=== PATIENT | male | born 1945 | race Caucasian/White ===

== ENCOUNTER 2024-09-19 21:11 | Inpatient (IN) | payer MEDICARE, BC, SELFPAY ==
[2024-09-19 21:14] VITALS: BP 188/75; PULSE 71; RESP 19; TEMP 36.9; O2SAT 93
[2024-09-19 21:16] VITALS: PULSE 109; RESP 18; O2SAT 99
--- NOTE | 2024-09-19 21:22 | PD.EDADULT ---
ED General RME/HPI General Chief complaint: Flu Like Symptoms Stated complaint: COUGHING UP BLOOD Time Seen by Provider: 09/19/24 21:21 Source: patient and EMS Arrival date/time: 09/19/24 21:11 Mode of arrival: EMS Limitations: no limitations RME / HPI RME / HPI narrative: Dr. Miller?s Main ED Evaluation: 79-year-old male brought in by ambulance who presents to the ED for complaints of coughing up blood. Patient states it occurred at about 6PM this evening. He brings in a sample with him. He denies actual cough, fever, chills, or any other symptoms or complaints. He does report phlegm production. He reports current tobacco use at 2 packs a day since he was [id number][age][id number]. Patient notes extensive cardiac history include open heart surgery approximately 7 years ago and stent placement last April 2024. Related Data Home Medications ?Medication ?Instructions ?Recorded ?Confirmed amlodipine 10 mg tablet 10 mg PO QDAY 09/13/19 03/08/21 aspirin 81 mg tablet,delayed 81 mg PO QDAY 09/13/19 03/08/21 release atorvastatin 10 mg tablet 10 mg PO QDAY 09/13/19 03/08/21 metoprolol succinate 100 mg 100 mg PO QDAY 09/13/19 03/08/21 tablet,extended release 24 hr Previous Rx's ?Medication ?Instructions ?Recorded azithromycin 250 mg tablet See Rx Instructions PO .COMPLEX #6 12/24/23 tabs Allergies Allergy/AdvReac Type Severity Reaction Status Date / Time acetaminophen [From [place]] Allergy Mild Flushing Verified 08/15/22 00:15 hydrocodone [From [place]] Allergy Mild Flushing Verified 08/15/22 00:15 codeine Allergy Hives Verified 08/15/22 00:15 Review of Systems Review of Systems Systems Reviewed: All systems reviewed, normal except as documented Past Medical History Past Medical History NEUROLOGIC: Negative Neurological Disorders or Seizures CARDIAC: Positive Aneurysm and Hypertension; Negative Cardiac Disorders or Congestive Heart Failure RESPIRATORY: Positive Chronic Obstructive Pulmonary Disease (COPD); Negative Asthma GASTROINTESTINAL: Positive Gastrointestinal Disorders; Negative Hepatitis GENITOURINARY: Negative Genitourinary Disorders or Renal Disease MUSCULOSKELETAL: Negative Musculoskeletal Disorders ENT: Negative Glaucoma ENDOCRINE: Negative Endocrine Disorders, Diabetes Mellitus Type 1 or Diabetes Mellitus Type 2 HEMATOLOGIC: Negative Blood Disorders, Sickle Cell Disease or Clotting Problems OTHER HISTORY: Positive Chicken Pox, Measles, Mumps and Cancer; Negative Falls, Blood Transfusions, Blood Transfusion Reaction, Anesthesia Reactions or MRSA Family History FAMILY HISTORY: Negative Family Cardiac Disorders Surgical History SURGICAL: Positive Eye Surgery and Vasectomy; Negative Endocrine Surgery Social History SMOKING STATUS: Never smoker ED Exam Narrative Physical exam: GENERAL APPEARANCE: alert and oriented x 4, well-developed, well-nourished, no acute distress VITALS: All vitals were reviewed and the pulse ox is 93% on room air, which is normal according to my interpretation. HEENT: Normocephalic, atraumatic; pupils equal, round, reactive to light; EOMI; mucous membranes pink, moist; oropharynx clear NECK: Supple LUNGS: CTABL; no wheezes, no rales, no rhonchi HEART: Regular rate, regular rhythm; normal S1, S2; no murmurs ABDOMEN: non distended; normal BS; soft, no tenderness, no guarding, no rebound; no masses, no organomegaly, no hernia BACK: no CVA tenderness EXTREMITIES: atraumatic; no edema NEUROLOGIC: awake; alert and oriented x4; cranial nerves II-XII grossly intact; no focal sensory or motor deficits PSYCHIATRIC: appropriate mood and affect SKIN: warm, dry, normal color; no rashes General Limitations: Present no limitations Course Course Course Narrative: CXR ordered for determining etiology of cough. 0435: Spoke with Dr. Srinivasan from teleradiology regarding CTA re-read. States there is a dilated segment of the arch, but is not an aneurysm, and that the remainder of the CTA shows chronic changes that are normal. 0444: Patient is still hypertensive at 173/113 with a pulse ox of 88-91% on 2L/nasal cannula. On room air, he is at 87-9% on room air, but is not in any respiratory distress or shortness of breath. He endorses having a recent cough. Lungs are clear. Will consult an admission to the hospitalist. Quality Measures none Orders Category Date Time Status Admit to Inpatient Status Routine Admission 09/20/24 05:13 Active Patient Condition Routine Admission 09/20/24 05:13 Ordered Activity as Tolerated Routine Care 09/20/24 05:14 Ordered Iron Erector NOW Care 09/19/24 21:37 Active Continuous Pulse Oximetry NOW Care 09/19/24 21:36 Completed EKG (ED ONLY) *Do not use* NOW Care 09/19/24 21:37 Completed Insert IV NOW Care 09/19/24 21:37 Completed Notify provider NEEDED Care 09/20/24 05:13 Active Orthostatic Vitals NOW Care 09/19/24 21:36 Active Sequential Compression Device QSHIFT Care 09/20/24 05:[address] angio chest abdomen pelvis Stat Exams 09/19/24 21:40 Taken EKG (ED Only) Stat Exams 09/19/24 21:36 Draft XR chest 1V portable Stat Exams 09/19/24 21:36 Completed Arterial Blood Gas Stat Lab 09/19/24 22:01 Completed B-Type Natriuretic Peptide Stat Lab 09/19/24 21:52 Completed BMP [Basic Metabolic Panel] Stat Lab 09/20/24 04:57 Ordered Basic Metabolic Panel AM DRAW Lab 09/21/24 05:00 Ordered Basic Metabolic Panel AM DRAW Lab 09/22/24 05:00 Ordered Basic Metabolic Panel AM DRAW Lab 09/23/24 05:00 Ordered CBC AM DRAW Lab 09/21/24 05:00 Ordered CBC AM DRAW Lab 09/22/24 05:00 Ordered CBC AM DRAW Lab 09/23/24 05:00 Ordered CBC Stat Lab 09/19/24 21:52 Completed CBC Stat Lab 09/20/24 04:57 Ordered Comprehensive Metabolic Panel Stat Lab 09/19/24 21:52 Completed Magnesium Stat Lab 09/19/24 21:52 Completed Partial Thromboplastin Time Stat Lab 09/19/24 21:52 Completed Procalcitonin Stat Lab 09/20/24 05:18 Ordered Prothrombin Time with INR Stat Lab 09/19/24 21:52 Completed Troponin I Stat Lab 09/19/24 21:52 Completed Azithromycin Inj [Zithromax Inj] 250 mg Med 09/20/24 05:19 Ordered Sodium Chloride 0.9% 250 ml [Ns] 250 ml IV QDAY Labetalol IV [Trandate IV] Med 09/20/24 04:32 Discontinued 20 mg IVP X1 ONE Potassium Chloride [K-Dur] Med 09/20/24 04:31 Discontinued 20 meq PO X1 ONE Sodium Chloride 0.9% 1000 ml [Ns] 1,000 ml Med 09/20/24 05:15 Active IV 75 mls/hr amLODIPine BESYLATE [Norvasc] Med 09/20/24 09:00 Active 10 mg PO QDAY Code Status Routine Oth 09/20/24 05:13 Ordered Oxygen Delivery NOW RT 09/19/24 21:36 Active Vital Signs Vital signs: Vital Signs Temperature 98.4 F 09/19/24 21:14 Pulse Rate 71 09/19/24 21:14 Respiratory Rate 19 09/19/24 21:14 Blood Pressure 188/75 H 09/19/24 21:14 Pulse Oximetry (%) 93 L 09/19/24 21:14 Oxygen Delivery Method Room Air 09/19/24 21:14 [facility] Patient data External records reviewed:: [facility] previous records and EMS form Clinical information provided by:: patient and EMS Social determinants that could affect healthcare access:: substance use (smokes cigarettes - 2 packs per day for the last 60 years) Patient has the following chronic illnesses:: aortic dissection (surgically treated 7 years ago), hyperlipidemia, and hypertension, stent placement at [facility] 04/18/24 per patient How is presenting disease/condition affected by chronic disease/condition?: uneffected by Evaluation data The following diagnostics were reviewed and interpreted by me:: lab results, radiology exam(s) and EKG tracing(s) Lab and/or radiology exams considered but not ordered:: None Interpretation Summary: WBC count is elevated at 12.6, Potassium is slightly low at 3.1, troponin is normal, according to my interpretation. CXR shows a prior sternotomy, widened mediastinum, and bibasilar infiltrates, according to my interpretation. EKG done at 2306, NSR, rate of 81, normal axis, no ectopy, mild subtle ST depressions in V2-V6, lead II, and avF, no STEMI, according to my interpretation. ---- Telerad Preliminary Report Draft Patient: VIJAY NEWTON [facility]. Record#: [id number] Birthdate: 1945 Age/Sex: 79 / M Location: [facility] Attending Dr: Ordering Physician: Date of Service: Procedure(s): Accession Number(s): cc: ~ CT angiogram of the chest, abdomen and pelvis with intravenous contrast (axial sections with sagittal and coronal reformats). September 20, 2024 at 0141 hours Clinical History: Hemoptysis. Reference is made to the prior report dated CT Angio chest May 27, 2022. 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 The origins of the right brachiocephalic, left common carotid and left subclavian arteries are patent. Again noted is tortuosity of the descending thoracic aorta, with fusiform partially thrombosed aneurysm measuring up to 5.4 cm at the level of the diaphragm. There is patent stent in the descending aorta and abdominal aorta to the infrarenal level. There are patent stents of celiac, superior mesenteric and bilateral renal arteries. 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 The left internal iliac artery is patent. There is no filling defect within the pulmonary artery divisions to suggest pulmonary thromboembolism. No evidence of mediastinal mass or lymphadenopathy. There is no pericardial effusion. Coronary artery calcification is noted. Emphysematous changes are seen in the lungs with subpleural reticulations. No evidence of pleural effusion or pneumothorax. Large enhancement defect in inferior pole of the kidney bilaterally. There is 1.6 cm lesion in the left interpolar region of the left kidney. Left renal cysts, the largest measuring up to 4.2 cm. A 1.2 cm in the right kidney. The liver, gallbladder, spleen, pancreas, adrenals are unremarkable. A small hiatal hernia is present. No evidence of bowel obstruction. The appendix is within normal limits (axial image 237/401). There are multiple colonic diverticula without evidence of diverticulitis. There is no significant mesenteric or retroperitoneal adenopathy. The urinary bladder is unremarkable. The prostate is moderately enlarged indenting the urinary bladder base. Prostatic calcifications are seen. There is no free fluid, free air or abscess. A small fat-containing umbilical hernia is present. Degenerative changes are identified in the spine. Median sternotomy wires are identified. Impression: 1. 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 2. Tortuosity of the descending thoracic aorta, with fusiform partially thrombosed aneurysm measuring up to 5.4 cm at the level of the diaphragm. Patent stent in the descending aorta and abdominal aorta to the infrarenal level. 3. 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 4. 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 5. 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 6. Renal lower pole infarctions bilaterally. 7. No evidence of pulmonary thromboembolism. 8. Moderately enlarged prostate. 9. Other findings as described above. Discussion Details: Results verbally communicated to : Dr Miller at 03:19 AM 09/20/2024 Report Electronically Signed By: Nivia Srinivasan 09/20/2024 3:31:15 AM [EST Medications Medications considered but not ordered:: None Medication administrations:: Medication Administration History Amlodipine Besylate (Amlodipine Besylate 5 Mg Tablet) 10 mg PO QDAY [facility] Stop: 10/20/24 08:59 Sodium Chloride (Ns) 1,000 mls @ 75 mls/hr IV .[id number] ARIC Stop: 09/20/24 18:34 Azithromycin 250 mg/ Sodium (Chloride) 250 mls @ 250 mls/hr IV QDAY [facility] Stop: 09/27/24 05:18 Discontinued Medications Labetalol HCl (Labetalol Inj 5 Mg/Ml Vial 20 Ml) 20 mg IVP X1 ONE Stop: 09/20/24 04:33 Last Admin: 09/20/24 04:46 Dose: 20 mg Documented By: FREEDOM Potassium Chloride (Potassium Chloride 20 Meq Tabcr) 20 meq PO X1 ONE Stop: 09/20/24 04:32 Last Admin: 09/20/24 04:45 Dose: 20 meq Documented By: FREEDOM As above, if any Consultations Consultation(s) initiated? (list below): Yes Consultation #1 (Physician, Specialty, Details): Discussed case with [Dr. Harris] from Hospitalist service regarding admission. Discussed patients ED course, exam findings, labs, and radiology results. The Hospitalist will review the chart and call me back. Time: 04:53 Consultation #2 (Physician, Specialty, Details): Dr. Harris accepts the patient for admission. Time: 05:15 Diagnosis Differential Diagnosis ED Complaint MDM: See MDM Most likely diagnosis given after review of the tests above:: See clinical impression Admission Indicated Admission indicated?: indicated Explain why admission is indicated or not indicated:: Admission criteria met. Admission Request Was there a request for admission?: Yes Admission Attestation Admission request attestation: Discussed case with [] from Hospitalist service regarding admission. Discussed patients ED course, exam findings, labs, and radiology results. The Hospitalist [agrees,declines] to accept the patient for admission. Disposition Plan Disposition Plan: Admit Medical Decision Making Differential Diagnosis Differential Diagnosis: See [facility] Lab Data 09/19/24 21:52 09/19/24 21:52 Labs: Lab Results 09/19/24 09/19/24 Range/Units 21:52 22:01 WBC 12.6 H (3.8-10.6) Thou/mm3 RBC 4.91 (4.50-5.90) Miln/mm3 Hgb 14.4 (13.5-16.0) g/dL Hct 41.6 (41.0-53.0) % MCV 85 (80-100) fL MCH 29.3 (25.0-35.0) pg MCHC 34.6 (31.0-37.0) g/dl RDW Std Deviation 42.7 (35.1-43.9) fL Plt Count 209 (140-440) Thou/mm3 Neut % (Auto) 45 (37-80) % Lymph % (Auto) 38 (10-50) % [place] % (Auto) 10 (0-12) % Eos % (Auto) 6 (0-10) % Baso % (Auto) 1 (0-2.5) % Neut # (Auto) 5.7 (1.8-7.7) Thou/mm3 Lymph # (Auto) 4.8 (1.0-4.8) Thou/mm3 [place] # (Auto) 1.2 H (0.0-0.8) Thou/mm3 Eos # (Auto) 0.8 H (0.0-0.5) Thou/mm3 Baso # (Auto) 0.1 (0.0-0.2) Thou/mm3 Immature Gran # (Auto) 0.05 H (0.00-0.00) Thou/mm3 Absolute Nucleated RBC 0.00 (0.00-0.00) Thou/mm3 Immature Gran % 0 (0-0) % Nucleated RBC % 0 (0) /100 WBC PT 11.9 (9.0-12.2) Seconds INR 1.1 (0.9-1.3) APTT 28.6 (22.0-36.0) Seconds Puncture Site Right Radial ABG pH 7.45 (7.35-7.45) ABG pCO2 46 (32.0-48.0) mmHg ABG pO2 62 L (83-108) mmHg ABG HCO3 32 H (20-26) mEq/L ABG O2 Saturation 94 (91-98) % ABG Base Excess 7 H (-3-3) FiO2 21 % Sodium 137 (136-145) mMol/L Potassium 3.1 L (3.4-5.1) mMol/L Chloride 101 (98-107) mMol/L Carbon Dioxide 30.4 (20.0-31.0) mMol/L Anion Gap 6 L (7-16) BUN 18 (9-23) mg/dL Creatinine 1.2 (0.6-1.3) mg/dL Estim Creat Clear Calc 61.7 (>60) mL/min eGFR > 60 (60 - ) See Note BUN/Creatinine Ratio 15 (12-20) Ratio Glucose 115 H (74-106) mg/dL Calculated Osmolality 276 (275-295) Calcium 9.9 (8.3-10.6) mg/dL Corrected Calcium 9.9 (8.5-10.1) mg/dL Magnesium 1.9 (1.6-2.6) mg/dL Total Bilirubin 0.5 (0.3-1.2) mg/dL AST 19 (0-34) U/L ALT 11 (10-49) U/L Alkaline Phosphatase 88 (46-116) U/L Troponin I < 0.020 (0.0-0.045) ng/mL B-Natriuretic Peptide 104 H (0-100) pg/mL Total Protein 6.6 (5.7-8.2) gm/dL Albumin 4.3 (3.4-4.8) gm/dL Globulin 2.3 (2.3-3.5) gm/dL Albumin/Globulin Ratio 1.9 (1.2-2.2) Discharge Plan Prescriptions/Referrals Prescriptions/Med Rec: No Action amlodipine 10 mg tablet 10 mg PO QDAY aspirin 81 mg tablet,delayed release (DR/EC) 81 mg PO QDAY atorvastatin 10 mg tablet 10 mg PO QDAY metoprolol succinate 100 mg tablet extended release 24 hr 100 mg PO QDAY azithromycin 250 mg tablet See Rx Instructions .ROUTE .COMPLEX Qty: 6 0RF Rx Instructions: For 250 mg dose pack: take 500 mg today (day 1), then 250 mg for 4 days (days 2-5) Referrals: No Primary/Family,Physician [Primary Care Provider] - In 1 week Patient/Caregiver Discharge Instructions Print Language: [place] Citizen
--- NOTE | 2024-09-19 21:36 | XR_ITS ---
Examination: AP chest single view Technique one AP portable upright chest single view Exam date and time: September 19, 2024 2145 hrs. Comparison December 24, 2023 Indications: Hemoptysis today. Findings: Bibasilar opacity consistent with pneumonia CABG Normal heart size Partial visualization aortic stent Prominent osteopenia No amrit pulmonary edema Mild to moderate vascular congestion Impression: Bibasilar pneumonia
--- NOTE | 2024-09-19 21:36 | EKG_ITS ---
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
[2024-09-19 21:37] VITALS: BP 166/105; PULSE 81; RESP 29; O2SAT 93; BMI 34.4
--- NOTE | 2024-09-19 21:40 | XR_ITS ---
Examination: CTA chest, with intravenous contrast. CTA abdomen, with intravenous contrast. CTA pelvis, with intravenous contrast. 2-D sagittal and coronal reconstructions. 3-D reconstructions. Date and time of exam: September 20, 2024 0141 hours INDICATIONS: Status post aortic valve repair and aortic stent placement, coughing up blood today, hemoptysis CTDI vol (mgy) 10.8 DLP (MGycm) 894 Technique: Multiple CTA images, 2.0 mm slice thickness, obtained chest, abdomen, pelvis, with the high-resolution 64 slice scanner. 100 cc Isovue-370 is administered intravenously. Sagittal and coronal 2-D reconstructions are obtained. 3-D reconstructions, angiographic images are obtained. 3-D postprocessing, including vascular maximum intensity projections. Low dose protocols were performed. One or more of the following dose reduction techniques were used; automated exposure control, adjustment of the mA and/or KV according to patient size, use of iterative reconstruction technique. Findings: Aneurysmal dilatation of the aortic arch measuring up to 4.4 cm Aneurysmal dilatation of the thoracic aortic arch 4 cm, AP dimension 3.3 cm in the mid descending thoracic aorta and 5.9 cm in the descending thoracic aorta This stent is patent Patent stents celiac superior mesenteric and bilateral renal arteries 2.2 cm aneurysm celiac trunk with chronic thrombus axial image 169 Possible infarction in the inferior right kidney with extensive low density Subtle lesion posterior left kidney 16 mm Aneurysm at the aortic bifurcation, transverse dimension 5.3 cm Aneurysmal dilatation right common iliac artery 3 cm left common iliac artery 3.1 cm Aneurysm right internal iliac artery 2.7 cm which is largely thrombosed Bladder intact, moderate prostatomegaly Prominent osteopenia IMPRESSION: Negative for pulmonary artery emboli Aneurysmal dilatation thoracic aortic arch, descending thoracic aorta Patent thoracic aortic stent, patent celiac superior mesenteric and bilateral renal artery stents 2.2 cm aneurysm celiac trunk Suspicious for partial infarction anterior right kidney 16 mm solid lesion left kidney, recommend renal sonography follow-up Aneurysm aortic bifurcation 5.3 cm Aneurysms right and left common iliac arteries and right internal iliac artery
[2024-09-19 22:10] LABS: Allen Test Performed/OK; Base Excess 7 (-3-3); HCO3 32 mEq/L (20-26); Inspired Oxygen, FIO2 21 %; O2 Saturation 94 % (91-98); PCO2 46 mmHg (32.0-48.0); PO2 62 mmHg (83-108); Puncture Site Right Radial; pH, Arterial 7.45 (7.35-7.45)
[2024-09-19 22:14] LABS: Basophils # (Auto) 0.1 Thou/mm3 (0.0-0.2); Basophils % (Auto) 1 % (0-2.5); Eosinophils # (Auto) 0.8 Thou/mm3 (0.0-0.5); Eosinophils % (Auto) 6 % (0-10); Hematocrit 41.6 % (41.0-53.0); Hemoglobin 14.4 g/dL (13.5-16.0); Immature Granulocytes % (Auto) 0 % (0-0); Immature Granulocytes Auto 0.05 Thou/mm3 (0.00-0.00); Lymphocytes # (Auto) 4.8 Thou/mm3 (1.0-4.8); Lymphocytes % (Auto) 38 % (10-50); Mean Corpuscular HGB Conc 34.6 g/dl (31.0-37.0); Mean Corpuscular Hemoglobin 29.3 pg (25.0-35.0); Mean Corpuscular Volume 85 fL (80-100); Monocytes # (Auto) 1.2 Thou/mm3 (0.0-0.8); Monocytes % (Auto) 10 % (0-12); Neutrophils # (Auto) 5.7 Thou/mm3 (1.8-7.7); Neutrophils % (Auto) 45 % (37-80); Nucleated Red Blood Cell % 0 /100 WBC (0); Platelet Count 209 Thou/mm3 (140-440); RDW Standard Deviation 42.7 fL (35.1-43.9); Red Blood Count 4.91 Miln/mm3 (4.50-5.90); White Blood Count 12.6 Thou/mm3 (3.8-10.6)
[2024-09-19 22:27] LABS: INR 1.1 (0.9-1.3); Partial Thromboplastin Time 28.6 Seconds (22.0-36.0); Prothrombin Time 11.9 Seconds (9.0-12.2)
[2024-09-19 22:31] LABS: Alanine Aminotransferase 11 U/L (10-49); Albumin, Serum 4.3 gm/dL (3.4-4.8); Albumin/Globulin Ratio 1.9 (1.2-2.2); Alkaline Phosphatase 88 U/L (46-116); Anion Gap 6 (7-16); Aspartate Amino Transferase 19 U/L (0-34); BUN/Creatinine Ratio 15 Ratio (12-20); Bilirubin,Total 0.5 mg/dL (0.3-1.2); Blood Urea Nitrogen 18 mg/dL (9-23); Calcium 9.9 mg/dL (8.3-10.6); Calcium (Corrected) 9.9 mg/dL (8.5-10.1); Carbon Dioxide 30.4 mMol/L (20.0-31.0); Chloride 101 mMol/L (98-107); Creatinine (Component) 1.2 mg/dL (0.6-1.3); Estimated Creatinine Clearance 61.7 mL/min (>60); Globulin 2.3 gm/dL (2.3-3.5); Glucose 115 mg/dL (74-106); Magnesium 1.9 mg/dL (1.6-2.6); Osmolality,Calculated 276 (275-295); Potassium 3.1 mMol/L (3.4-5.1); Sodium 137 mMol/L (136-145); Total Protein 6.6 gm/dL (5.7-8.2); Troponin I < 0.020 ng/mL (0.0-0.045); eGFR > 60 See Note
[2024-09-19 22:33] LABS: B-Type Natriuretic Peptide 104 pg/mL (0-100)
[2024-09-19 23:22] VITALS: BP 178/118; BP 179/116; BP 186/105; PULSE 81; PULSE 85; PULSE 89; RESP 18; O2SAT 95
[2024-09-20] VITALS (35 sets, daily range): BP systolic 99–198; BP diastolic 69–113; PULSE 60–90; RESP 15–24; TEMP 36.2–37.2; O2SAT 87–96
--- NOTE | 2024-09-20 03:31 | PRELIM_ITS ---
CT angiogram of the chest, abdomen and pelvis with intravenous contrast (axial sections with sagittal and coronal reformats). September 20, 2024 at 0141 hoursClinical History: Hemoptysis.Reference is made to the prior report dated CT Angio chest May 27, 2022.Findings:There is fusiform aneurysm of a ortic arch measuring 4 cm (coronal image 63/174). The origins of the right brachiocephalic, left comm on carotid and left subclavian arteries are patent. Again noted is tortuosity of the descending thora cic aorta, with fusiform partially thrombosed aneurysm measuring up to 5.4 cm at the level of the marlon phragm. There is patent stent in the descending aorta and abdominal aorta to the infrarenal level. Th ere are patent stents of celiac, superior mesenteric and bilateral renal arteries. 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 Aneurysmal d ilatation of both common iliac arteries measuring at the right side 2.9 cm, at the left side 3.1 cm, with it partial thrombosis. 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 The left internal iliac artery is patent.There is no filling defect within the pulmonary artery divisions to suggest pulmonary thromboembolism. No evidence of mediastinal mass or lymphadenop athy. There is no pericardial effusion. Coronary artery calcification is noted. Emphysematous changes are seen in the lungs with subpleural reticulations. No evidence of pleural effusion or pneumothorax . Large enhancement defect in inferior pole of the kidney bilaterally. There is 1.6 cm lesion in the left interpolar region of the left kidney. Left renal cysts, the largest measuring up to 4.2 cm. A 1. 2 cm in the right kidney.The liver, gallbladder, spleen, pancreas, adrenals are unremarkable.A small hiatal hernia is present. No evidence of bowel obstruction. The appendix is within normal limits (axi al image 237/401). There are multiple colonic diverticula without evidence of diverticulitis. There i s no significant mesenteric or retroperitoneal adenopathy.The urinary bladder is unremarkable. The pr ostate is moderately enlarged indenting the urinary bladder base. Prostatic calcifications are seen. There is no free fluid, free air or abscess. A small fat-containing umbilical hernia is present. Dege nerative changes are identified in the spine. Median sternotomy wires are identified. Impression:1. F usiform aneurysm of aortic arch measuring 4 cm.2. Tortuosity of the descending thoracic aorta, with f usiform partially thrombosed aneurysm measuring up to 5.4 cm at the level of the diaphragm. Patent st ent in the descending aorta and abdominal aorta to the infrarenal level.3. 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 Renal lower pole infarctions bilaterally.7. No evidence of pulmonary thromboembolism.8. Moderately enlarged prostate.9. Other findings as described above.Discussion Deta ils: Results verbally communicated to : Dr Miller at 03:19 AM 09/20/2024 Report Electronically Vani d By: Nivia Srinivasan 09/20/2024 3:31:15 AM [EST]
[2024-09-20] MEDS: POTASSIUM CHLORIDE 20 mEq TABCR PO ×3 (04:45→08:24)
[2024-09-20] MEDS: LABETALOL INJ 5 MG/ML VIAL 20 ML 20 MG IVP (04:46)
--- NOTE | 2024-09-20 05:24 | EVENTNT_ITS ---
Documentation for date of: 09/20/24 Event Note Event Note: Chief Complaint: Hemoptysis. History of Present Illness: The patient is a 79-year-old male with a significant cardiac history, including open-heart surgery seven years ago and extensive stent placement in April 2024 at [place], presenting with hemoptysis. He reports coughing up a substantial amount of blood starting at approximately 6:00 PM last evening without prior warning. He denies any preceding cough, fever, chills, chest pain, or shortness of breath but notes occasional phlegm production. This episode espinoza the second occurrence of hemoptysis, the first being in February of this year, which resulted in an overnight hospitalization and a diagnosis of pneumonia, later amended to an aortic aneurysm. He denies any recent trauma or new symptoms. His surgical history includes placement of 11 stents at [place] last April due to aortic aneurysm. Post-surgery, he experienced significant back pain and muscle loss but no persistent symptoms. He has chronic back pain. He reports lightheadedness occasionally but no dizziness or syncope. He denies abdominal pain, dysuria, or other gastrointestinal or genitourinary symptoms. Social history reveals extensive tobacco use of two packs per day for the past 61 years. He consumes blackberry harjinder occasionally and denies illicit drug use. His current medications include a baby aspirin and antihypertensives. He reports COPD but denies it being problematic. He is currently asymptomatic aside from hemoptysis. In ER, his vital signs showed a temperature of 98.4?F, heart rate 71 bpm, respiratory rate 19, blood pressure 188/75 mmHg, and oxygen saturation of 93% on room air. Labs were significant for leukocytosis, hemoglobin 14.4, platelets 209, potassium 3.1, and glucose 115. 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 * Tortuous descending thoracic aorta with a fusiform, partially thrombosed aneurysm (5.4 cm). * Aneurysms of the abdominal aorta bifurcation (3.7 cm), celiac trunk, and iliac arteries. * Renal infarctions bilaterally. * Patent stents in the thoracic and abdominal aorta. There was no evidence of pulmonary thromboembolism. Other findings included an enlarged prostate. The patient was admitted for observation and monitoring of hemoptysis given his complex vascular history. Past Medical History: * Thoracic and abdominal aortic aneurysms with stent placement (April 2024). * Chronic obstructive pulmonary disease (COPD). * Hypertension. Past Surgical History: * Open-heart surgery (2017). * Stent placement x11 (April 2024). Social History: * Tobacco: 2 packs/day for 61 years. * Alcohol: Occasional blackberry harjinder. * Lives with his . Family History: * Brother of a massive heart attack Labs and images reviewed. Assessment and Plan: #Hemoptysis: Differential diagnosis includes bronchitis or an endoleak from the stent graft. A pulmonology consultation will be arranged. Hold blood thinner now. Trend H/H. #Thoracic and abdominal aortic aneurysms: Stable on CT. #COPD: Stable. Continue to encourage smoking cessation. #Hypertension: Continue the current regimen and monitor blood pressure regularly. Admit for observation and close monitoring of hemoptysis and vascular status.
--- NOTE | 2024-09-20 05:45 | PD.RESHP ---
Documentation for date of: 09/20/24 HPI History of Present Illness Chief complaint: Hemoptysis History of present illness: 79-year-old male with past medical history of chronic smoking, COPD, aortic dissection status postrepair, hypertension, hyperlipidemia, recent aneurysmal repair with a stent placement in April 2024 at [place], BPH, phimosis status post surgery presented to the hospital with chief complaints of hemoptysis since 4 days. Patient endorsed that he had recent flulike illness in the early August, and was treated with a Z-Jordan by the primary care provider. Patient endorsed that he is having cough with sputum for many years but he noted recent worsening of cough with sputum since the viral illness. Since 4 days, he noted specks of hemoptysis while he was coughing but on the day before admission, patient had multiple episodes of hemoptysis, in total patient had almost 200 mL of blood loss following which he came to the ED. Showed the pictures of hemoptysis and also at the bedside that revealed amrit blood clots in the mucous. Denies shortness of breath, fever, recent bedridden. Patient is still continuing to smoke, 2 packs a day. Endorsed weight loss since the time of aortic aneurysm repair in April 2024. ED Course: -Initial vitals were blood pressure 188/75 mmHg, pulse rate 71 bpm, respiratory rate 19/min, temperature 98.4 ?F, SpO2 93% with room air -Labs significant for mild leukocytosis 12.6, potassium 3.1, BNP 104, coagulation studies are within normal limits. Chest x-ray showed bilateral patchy infiltrate in the lower lobes. 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 Tortuous descending thoracic aorta with a fusiform, partially thrombosed aneurysm (5.4 cm). Aneurysms of the abdominal aorta bifurcation (3.7 cm), celiac trunk, and iliac arteries. Renal infarctions bilaterally. Patent stents in the thoracic and abdominal aorta with no evidence of pulmonary thromboembolism. -In the ED, patient was given a dose of labetalol and potassium -Patient was admitted for evaluation of cause of hemoptysis Past medical history: Aortic dissection s/p repair, aortic aneurysm s/p repair and stent placement, COPD, hypertension, hyperlipidemia, BPH Past surgical history: Status post aortic aneurysm repair, phimosis s/p repair Social history: Chronic smoker, 2 packs/day since the age of 18, occasional alcoholic, denies other illicit drug abuse Review of Systems Review of Systems Systems Reviewed: All systems reviewed, normal except as documented Exam Vital Signs Temp Pulse Resp BP Pulse Ox O2 Del Method O2 Flow Rate 98.0 F 72 20 173/113 H 93 L Nasal Cannula 2 09/20/24 02:42 09/20/24 04:46 09/20/24 04:42 09/20/24 04:46 09/20/24 04:42 09/20/24 04:42 09/20/24 04:42 Narrative Exam General: Awake. Elderly male HEENT: Normocephalic, atraumatic, mucous membranes moist. Heart: Regular rate and rhythm, no murmurs. Lungs: Clear to auscultation with no wheezing or crackles. Abdomen: Soft, nondistended, nontender, positive bowel sounds. ?No guarding or rebound tenderness. Neurologic: Alert and oriented x3, no gross neurological deficit, and patient able to move all 4 extremities. Extremities: No edema. Skin: No rash or ecchymoses. Results: Labs 09/20/24 05:55 09/20/24 05:55 Labs: Short CBC 09/19/24 Range/Units 21:52 WBC 12.6 H (3.8-10.6) Thou/mm3 Hgb 14.4 (13.5-16.0) g/dL Hct 41.6 (41.0-53.0) % Plt Count 209 (140-440) Thou/mm3 BMP 09/19/24 21:52 Sodium 137 Potassium 3.1 L Chloride 101 Carbon Dioxide 30.4 BUN 18 Creatinine 1.2 Glucose 115 H Calcium 9.9 Cardiac Enzymes 09/19/24 Range/Units 21:52 Troponin I < 0.020 (0.0-0.045) ng/mL Liver Function 09/19/24 Range/Units 21:52 Total Bilirubin 0.5 (0.3-1.2) mg/dL AST 19 (0-34) U/L ALT 11 (10-49) U/L Alkaline Phosphatase 88 (46-116) U/L Albumin 4.3 (3.4-4.8) gm/dL ABG Interpretation ABG results: 09/19/24 22:01 ABG pH 7.45 ABG pCO2 46 ABG pO2 62 L ABG HCO3 32 H ABG O2 Saturation 94 ABG Base Excess 7 H Quality Measures Quality Measures none Advance care planning discussed with:: patient Medications Home Medications and Allergies Home Medications ?Medication ?Instructions ?Recorded ?Confirmed ?Type amlodipine 10 mg tablet 10 mg PO QDAY 09/13/19 09/20/24 History aspirin 81 mg tablet,delayed 81 mg PO QDAY 09/13/19 09/20/24 History release atorvastatin 10 mg tablet 40 mg PO QDAY 09/13/19 09/20/24 History metoprolol succinate 100 mg 100 mg PO QDAY 09/13/19 09/20/24 History tablet,extended release 24 hr sennosides 8.6 mg tablet (Senokot) 8.6 mg PO QDAY 09/20/24 09/20/24 History Allergies Allergy/AdvReac Type Severity Reaction Status Date / Time acetaminophen [From [facility]] Allergy Mild Flushing Verified 08/15/22 00:15 hydrocodone [From [facility]] Allergy Mild Flushing Verified 08/15/22 00:15 codeine Allergy Hives Verified 08/15/22 00:15 Visit Medications Amlodipine Besylate (Amlodipine Besylate 5 Mg Tablet) 10 mg PO QDAY ARIC Stop: 10/20/24 08:59 Sodium Chloride (Ns) 1,000 mls @ 75 mls/hr IV .[id number] ARIC Stop: 09/20/24 18:34 Azithromycin 250 mg/ Sodium (Chloride) 250 mls @ 250 mls/hr IV QDAY ARIC Stop: 09/28/24 08:59 Azithromycin 250 mg/ Sodium (Chloride) 250 mls @ 250 mls/hr IV X1 ONE Stop: 09/20/24 06:44 Discontinued Medications Labetalol HCl (Labetalol Inj 5 Mg/Ml Vial 20 Ml) 20 mg IVP X1 ONE Stop: 09/20/24 04:33 Last Admin: 09/20/24 04:46 Dose: 20 mg Potassium Chloride (Potassium Chloride 20 Meq Tabcr) 20 meq PO X1 ONE Stop: 09/20/24 04:32 Last Admin: 09/20/24 04:45 Dose: 20 meq Assessment & Plan Plan 79-year-old male with past medical history of chronic smoking, COPD, aortic dissection status postrepair, hypertension, hyperlipidemia, recent aneurysmal repair with a stent placement in April 2024 at [place], BPH, phimosis status post surgery presented to the hospital with chief complaints of hemoptysis since 4 days and admitted for hemoptysis evaluation # Moderate hemoptysis # 2/2 to aspirin vs bronchitis vs endobronchial malignancy vs less likely fistula from the aneurysm and stenting # Chronic smoking -Patient presented to the hospital with a chief complaints of hemoptysis since 4 days approximately 200 to 250 mL -Patient had a preceding history of upper respiratory tract infection in the early August for which patient was treated with Z-Jordan -Patient had history of chronic cough with sputum since many years. Denies fever, shortness of breath -Endorsed that he had weight loss since April 2024 after aneurysm repair. -Patient is using aspirin at home -Vitals are stable at the time of admission except for elevated blood pressure 188/75 mmHg -Physical examination remains unremarkable. -Labs showed mildly elevated WBC 10.8, coagulation studies are within normal limits. -Chest x-ray showed mild patchy infiltrates in bilateral lung vann. CTA chest/abdomen/pelvis done. Plan -Withheld aspirin -Started on IV fluids NS at 75 mL/h -Consult community center director Dr. Reaves -Monitor for further episodes of hemoptysis -Bronchoscopy if needed for further evaluation -Educate on smoking cessation # History of hypertension -Blood pressure at the time of admission is 188/75 mmHg -Patient does not exactly know the name of the blood pressure medications but he said that he is using 3 of them -Medication reconciliation is ordered -Patient received a dose of labetalol 20 Mg IV in the ED -Started on amlodipine 10 Mg p.o. daily and hydralazine 10 Mg IV 6 hourly as needed -Monitor blood pressures and titrate medications accordingly. # Hypokalemia -Potassium at the time of admission is 3.2 -Received 20 mEq of oral potassium and 1 more dose of 20 mEq of oral potassium is ordered -Monitor serum electrolytes and correct accordingly # Hyperlipidemia -Patient is using atorvastatin -Ordered lipid profile # History of BPH -Patient had complaints of increased frequency of micturition at night -Not on any medication as of now -Follow-up with Dr. Belle on outpatient basis # History of aortic aneurysm s/p repair -Done in 2023 at [place] -Records are obtained from the [facility] blood pressure control Hospital Maintenance: Dispo: Telemetry DVT ppx: Held in view of hemoptysis GI ppx: Not needed Diet: N.p.o. for now IV lines: Peripheral Code status: Full code Patient plan of care was discussed with the attending physician, Dr. Steven Easton, PGY1 Attending Provider Attestation/Addendum Pt was evaluated and plan formulated together with the housestaff team. I have reviewed the residents note above and agree with most of its content. Please refer to the residents note for additional details.
[2024-09-20 06:03] LABS: Basophils # (Auto) 0.1 Thou/mm3 (0.0-0.2); Basophils % (Auto) 1 % (0-2.5); Eosinophils # (Auto) 0.7 Thou/mm3 (0.0-0.5); Eosinophils % (Auto) 6 % (0-10); Hematocrit 41.7 % (41.0-53.0); Hemoglobin 14.3 g/dL (13.5-16.0); Immature Granulocytes % (Auto) 1 % (0-0); Immature Granulocytes Auto 0.05 Thou/mm3 (0.00-0.00); Lymphocytes # (Auto) 3.7 Thou/mm3 (1.0-4.8); Lymphocytes % (Auto) 35 % (10-50); Mean Corpuscular HGB Conc 34.3 g/dl (31.0-37.0); Mean Corpuscular Hemoglobin 29.1 pg (25.0-35.0); Mean Corpuscular Volume 85 fL (80-100); Monocytes % (Auto) 10 % (0-12); Neutrophils # (Auto) 5.2 Thou/mm3 (1.8-7.7); Neutrophils % (Auto) 48 % (37-80); Nucleated Red Blood Cell % 0 /100 WBC (0); Platelet Count 183 Thou/mm3 (140-440); RDW Standard Deviation 43.8 fL (35.1-43.9); Red Blood Count 4.91 Miln/mm3 (4.50-5.90); White Blood Count 10.8 Thou/mm3 (3.8-10.6)
[2024-09-20] MEDS: AZITHROMYCIN INJ 250 MG in SODIUM CHLORIDE 0.9% 250 ML 250 ML IV (06:13)
[2024-09-20] MEDS: SODIUM CHLORIDE 0.9% 1000 ML 1,000 ML 75 ML IV (06:13)
[2024-09-20 06:33] LABS: Anion Gap 5 (7-16); BUN/Creatinine Ratio 15 Ratio (12-20); Blood Urea Nitrogen 16 mg/dL (9-23); Calcium 9.6 mg/dL (8.3-10.6); Carbon Dioxide 29.3 mMol/L (20.0-31.0); Chloride 103 mMol/L (98-107); Creatinine (Component) 1.1 mg/dL (0.6-1.3); Estimated Creatinine Clearance 67.3 mL/min (>60); Glucose 112 mg/dL (74-106); Osmolality,Calculated 276 (275-295); Potassium 3.2 mMol/L (3.4-5.1); Sodium 137 mMol/L (136-145); eGFR > 60 See Note
[2024-09-20] MEDS: amLODIPine BESYLATE 5 MG TABLET 10 MG PO (08:24)
[2024-09-20] MEDS: Magnesium Sulfate 2 GM Ivpb 2 GM/50 ML BAG IV (08:25)
[2024-09-20] MEDS: hydrALAZINE INJ 20 MG/ML VIAL 10 MG IV (10:04)
[2024-09-20] MEDS: LABETALOL INJ 5 MG/ML VIAL 20 ML 10 MG IVP (10:48)
[2024-09-20] MEDS: METOPROLOL SUCCINATE XL 25 MG TABCR 100 MG PO (10:50)
[2024-09-20] MEDS: cefTRIAXone/D5w 1gm IV premix 50 ML IV (10:52)
--- NOTE | 2024-09-20 11:42 | PC.NURSE ---
Pt refuse blood drawl for TB.
--- NOTE | 2024-09-20 12:36 | PC.CC ---
Patient is a 79 year-old male who presents to the hospital for Hemoptysis. Anuja ALEJANDRE made [id number] contact with patient. ASW introduced self, role, and reason for visit. Patient appeared alert and oriented to self, location, and situation. Patient was pleasant and engaged in initial assessment. Patient confirmed information on demographics and lives with his , Ariana Pelayo . Patient's medical decision maker is his should he be unable to make his own medical decisions. At home patient ambulates independently and completes his own ADLs. Patient does not use any DME at home. Patient receives primary care with Dr. Augustin. Upon discharge patient plans to return home. services tech to follow-up with any discharge needs.
--- NOTE | 2024-09-20 13:30 | XR_ITS ---
Examination: Pulmonary perfusion and ventilatory scan Exam date and time: September 21, 2024 0936 hrs. Indications: Onset hemoptysis shortness of breath beginning 4 days ago, diagnoses COPD, nicotine dependence, history aortic dissection status post repair, hypertension, hyperlipidemia, bibasilar pneumonia and imaging this week Technique And Findings: Perfusion study 4.3 mCi technetium 99m macroaggregated albumin Ventilation 46.5 mCi technetium 90 9M DTPA Anterior, posterior, right lateral, left lateral, MORA, BENINESE chest images obtained Severe ventilation abnormality seen with COPD and pneumonia Perfusion study is quite homogeneous excepting left upper lobe which shows ventilatory defect No pulmonary perfusion ventilation mismatch Impression: No pulmonary perfusion ventilatory mismatch Low probability pulmonary artery emboli
[2024-09-20 13:51] LABS: Cocci Serology, IgM Negative (Negative)
--- NOTE | 2024-09-20 13:54 | ESPR_ITS ---
<Statement entered by Maxime Garcia MD - 09/20/24 16:30> I discussed with and supervised my co-resident involved in the care of this patient. I agree with the assessment and plan as documented above. Maxime Garcia,PGY-3 Disclaimer: Despite multiple revisions, due to the dictation software being used, the document below may not be free of grammatical errors including phonetic/typographic errors. However, this does not deter from our commitment to providing health care in the patient's best interest in mind. Documentation for date of: 09/20/24 Subjective Subjective Interval history: Patient was seen at bedside this morning. No overnight events. Patient still having hemoptysis. Patient CT scan did show aneurysmal dilatation thoracic aortic arch, patent thoracic aortic stent/celiac superior mesenteric/bilateral renal artery stents, 2.2 cm aneurysm celiac trunk, 16 mm solid lesion left kidney, aneurysm aortic bifurcation 5.3 cm, aneurysms right and left common iliac arteries and right internal iliac artery. Patient and daughter were updated on these findings. Ordained Minister recommended to get VQ scan and stated that patient most likely did not have any pneumonia and that infiltrates were most likely fibrotic tissue from COPD. No other complaints at this time. Started Rocephin additionally to Azithromycin for PNA. Exam Vital Signs Temp Pulse Resp BP Pulse Ox O2 Del Method O2 Flow Rate 98.6 F 74 22 H 163/104 H 91 L Room Air 2 09/20/24 09:00 09/20/24 11:30 09/20/24 11:30 09/20/24 11:30 09/20/24 11:30 09/20/24 09:00 09/20/24 04:42 Narrative Exam General: A/O x3, no acute distress, well-nourished, well-developed Eyes: PERRL, EOMI. Anicteric, vision grossly intact. Ears: No ear pain, no ear discharge, Hearing grossly intact. Nose: No nasal discharge. Mouth/Throat: Dry mucous membranes, no redness, no lesions, dry blood around lips. Neck: Neck supple, non-tender, no cervical lymphadenopathy. Lungs: Clear LUISA to auscultation and percussion, No accessory muscle use. Cardio: Normal S1/S2, regular rhythm, no murmurs, no JVD. Abdomen: Soft, non-tender, no palpable masses, peristalsis present, no guarding or rebound. Extremities: Symmetrical, no significant deformities, no peripheral edema , non-tender, peripheral pulses presents. Skin: No rashes, no lesions, warm to touch. Neuro: No focal neurological deficits. motor and sensory intact. Objective Labs 09/20/24 05:55 09/20/24 05:55 Labs: Laboratory Results - last 24 hr 09/19/24 09/19/24 09/20/24 21:52 22:01 05:55 WBC 12.6 H 10.8 H RBC 4.91 4.91 Hgb 14.4 14.3 Hct 41.6 41.7 MCV 85 85 MCH 29.3 29.1 MCHC 34.6 34.3 RDW Std Deviation 42.7 43.8 Plt Count 209 183 Neut % (Auto) 45 48 Lymph % (Auto) 38 35 Holt % (Auto) 10 10 Eos % (Auto) 6 6 Baso % (Auto) 1 1 Neut # (Auto) 5.7 5.2 Lymph # (Auto) 4.8 3.7 Holt # (Auto) 1.2 H 1.0 H Eos # (Auto) 0.8 H 0.7 H Baso # (Auto) 0.1 0.1 Immature Gran # (Auto) 0.05 H 0.05 H Absolute Nucleated RBC 0.00 0.00 Immature Gran % 0 1 H Nucleated RBC % 0 0 PT 11.9 INR 1.1 APTT 28.6 Puncture Site Right Radial ABG pH 7.45 ABG pCO2 46 ABG pO2 62 L ABG HCO3 32 H ABG O2 Saturation 94 ABG Base Excess 7 H FiO2 21 Sodium 137 137 Potassium 3.1 L 3.2 L Chloride 101 103 Carbon Dioxide 30.4 29.3 Anion Gap 6 L 5 L BUN 18 16 Creatinine 1.2 1.1 Estim Creat Clear Calc 61.7 67.3 eGFR > 60 > 60 BUN/Creatinine Ratio 15 15 Glucose 115 H 112 H Calculated Osmolality 276 276 Calcium 9.9 9.6 Corrected Calcium 9.9 Magnesium 1.9 Total Bilirubin 0.5 AST 19 ALT 11 Alkaline Phosphatase 88 Troponin I < 0.020 B-Natriuretic Peptide 104 H Total Protein 6.6 Albumin 4.3 Globulin 2.3 Albumin/Globulin Ratio 1.9 Procalcitonin 0.10 Coccidioides IgM Ab 09/20/24 09:58 WBC RBC Hgb Hct MCV MCH MCHC RDW Std Deviation Plt Count Neut % (Auto) Lymph % (Auto) Holt % (Auto) Eos % (Auto) Baso % (Auto) Neut # (Auto) Lymph # (Auto) Holt # (Auto) Eos # (Auto) Baso # (Auto) Immature Gran # (Auto) Absolute Nucleated RBC Immature Gran % Nucleated RBC % PT INR APTT Puncture Site ABG pH ABG pCO2 ABG pO2 ABG HCO3 ABG O2 Saturation ABG Base Excess FiO2 Sodium Potassium Chloride Carbon Dioxide Anion Gap BUN Creatinine Estim Creat Clear Calc eGFR BUN/Creatinine Ratio Glucose Calculated Osmolality Calcium Corrected Calcium Magnesium Total Bilirubin AST ALT Alkaline Phosphatase Troponin I B-Natriuretic Peptide Total Protein Albumin Globulin Albumin/Globulin Ratio Procalcitonin Coccidioides IgM Ab Negative ABG Interpretation ABG results: 09/19/24 22:01 ABG pH 7.45 ABG pCO2 46 ABG pO2 62 L ABG HCO3 32 H ABG O2 Saturation 94 ABG Base Excess 7 H Quality Measures Quality Measures none Advance care planning discussed with:: patient and child Assessment & Plan Assessment Current Active Medications: Generic Name Dose Route Start Last Admin Trade Name Freq PRN Reason Stop Dose Admin Amlodipine Besylate 10 mg 09/20/24 09:00 09/20/24 08:24 Amlodipine Besylate 5 Mg Tablet PO 10/20/24 08:59 10 mg QDAY ARIC Administration Sodium Chloride 1,000 mls @ 75 mls/hr 09/20/24 05:15 09/20/24 06:13 Ns IV 09/20/24 18:34 75 mls/hr .[id number] ARIC Administration Azithromycin 250 mg/ Sodium 250 mls @ 250 mls/hr 09/21/24 09:00 Chloride IV 09/28/24 08:59 QDAY ARIC Ceftriaxone Sodium/Dextrose 50 mls @ 100 mls/hr 09/20/24 10:26 09/20/24 11:39 Rocephin/D5w 1gm Iv Premix IV 09/27/24 10:25 Infused QDAY ARIC Infusion Metoprolol Succinate 100 mg 09/20/24 10:45 09/20/24 10:50 Metoprolol Succinate Xl 25 Mg Tabcr PO 10/20/24 10:44 100 mg QDAY ARIC Administration Plan 79-year-old male with past medical history of COPD, chronic smoker, aortic dissection status postrepair, hypertension, hyperlipidemia, recent aneurysms repair with stent placement at [place], and BPH was admitted to the hospital on 09/20/2024 due to hemoptysis likely secondary to COPD versus his malignancy versus fistula from thoracic aortic aneurysm. #Hemoptysis #COPD #Chronic smoker #Thoracic aortic arch aneurysm s/p stent ?patient has been having hemoptysis since February of last year, but it had resolved. ? Now patient has hemoptysis again for the last 4 days and decided to come to the ER. ? DDx hemoptysis most likely in the setting of malignancy versus fistula formation from thoracic aortic arch aneurysm versus COPD ?CT scan did show aneurysmal dilatation thoracic aortic arch and patent thoracic aortic stent Plan: ? VQ scan ordered ?Pulmonology consulted, pressure recommendations -will need thoracic surgeon F/U outpatient ? Will continue to monitor #Hypertensive urgency ? Patient's blood pressure was 188/111 this morning ?Labetalol 10 mg x 1 given today ? Current blood pressure 163/94 Plan: ? Start metoprolol XL 100 mg daily ? Continue amlodipine 10 mg daily ?Labetalol 10 mg every 4 hours as needed for SBP above 170 and DBP above 100 ?Will decrease blood pressure by no more than 25% today ? Will continue to monitor #Community-acquired pneumonia #Leukocytosis ?Patient recently had an upper respiratory tract infection for which she got a CPAP outpatient. ?Chest x-ray did not show bibasilar pneumonia ?WBC 10.8 today ?Patient had no fevers on admission Plan: ? Continue azithromycin and Rocephin [09/20/2024?] ?Cocci ordered ?Will continue to monitor #Hypokalemia ? Potassium 3.1 on admission 3.2 today Plan: ? Gave total of 40 mg this morning. ? Will continue to replete as necessary ? Will continue to monitor #16 mm left kidney mass, incidental finding ? Chest/abdomen/pelvis CTA showed a 16mm solid lesion of the left kidney Plan: ? Follow-up outpatient Disposition: Patient admitted to telemetry pending VQ scan, will need thoracic surgeon F/U outpatient . Diet: Cardiac GI prophylaxis: not indicated DVT prophylaxis: SCD Code: Full Case disclosed with Attending Dr. Fleming and My senior Dr. Garcia PGY3. Freddy Song PGY1 Attending Provider Attestation/Addendum I have examined the patient, reviewed labs and imaging findings, discussed the case with the resident(s), and reviewed entered orders. I agree with the plan of care as outlined in this note, with these additional summaries/recommendations: Patient and daughter seen at bedside. Patient admitted for active hemoptysis without a clear etiology. CXR showed bibasilar pneumonia and previous CABG. CTA chest was negative for pulmonary artery emboli but did reveal aneurysmal dilation aortic arch plus descending, patent thoracic aortic stent, patent celiac superior mesenteric and bilateral renal artery stents, 2.2 cm aneurysm celiac trunk, aneurysm aortic bifurcation 5.3 cm, and aneurysms right and left common iliac arteries and right internal iliac artery. Differential for hemoptysis is broad at this time. Possible etiologies include airway diseases with bronchitis/bronchiectasis, infection, fistula, AV malformation, iatrogenic injury, malignancy, smoking, idiopathic, or fungal. Pulmonology consulted and we will order VQ scan. Patient is stable and no bronchoscopy needed at this time. Continue IV Rocephin and azithromycin for possible community-acquired pneumonia. Cocci ordered. Patient has extensive thoracic and abdominal aortic aneurysms with 11 stents placed at [place] last April. Hold home anticoagulation for now. Continue home antihypertensives. Potassium and magnesium replaced. We will follow-up pulmonology recs and VQ scan. Repeat hematology and chemistry panel in AM. Dr. Fleming Patient was reevaluated by pulmonology who recommends strict blood pressure control, strict bedrest, sleep on left side, hold aspirin, 1 units of platelets, nebulizer with TXA, and initiate transfer for embolization. Transfer nurse notified.
[2024-09-20] MEDS: SENNA TABLET 1 TAB PO (18:15)
[2024-09-20] MEDS: LACTULOSE SYRUP 20 GM/30 ML UDC PO (18:15)
[2024-09-20] MEDS: TAMSULOSIN HCL 0.4 MG CAPSULE PO (18:15)
--- NOTE | 2024-09-20 18:36 | PC.CC ---
Addendum entered by Vinh Moss RN 09/20/24 18:49: Spoke to Fidel at [facility], patient was seen by their cardiovascular team. He will review clinicals provided and contact us with any requests for additional information. He has requested images to be sent for review by his vascular surgeon. Packet was and disc were created and handed off to ICU charge nurse. Original Note: Received call from Dr. Maxime Garcia requesting to initiate transfer to [facility] for cardiothorasic evaluation of hemoptysis, patient had aneurysmal repair with stents at [facility] in April,.
--- NOTE | 2024-09-20 18:39 | ESDS_ITS ---
<Statement entered by Maxime Garcia MD - 09/20/24 18:42> I discussed with and supervised my co-resident involved in the care of this patient. I agree with the assessment and plan as documented above. Maxime Garcia,PGY-3 Disclaimer: Despite multiple revisions, due to the dictation software being used, the document below may not be free of grammatical errors including phonetic/typographic errors. However, this does not deter from our commitment to providing health care in the patient's best interest in mind. Planned Discharge Date 09/20/24 DS: Providers Provider Date of admission: 09/20/24 05:13 Primary care physician: Physician No Primary/Family Admitting Provider: Aydin Harris MD Attending Provider on Admission: Aydin Harris MD Consults: 09/20/24 05:39 Consult to Pulmonology Routine Comment: hemoptysis Consulting Provider: Jann Reaves I Attending Provider on DC: Seven Fleming MD Discharging Provider: Seven Fleming MD DS: Diagnosis Problem List Completed Was Problem List Reviewed/Reconciled?: Yes Hospital Course Hospital Course Hospital course: 79-year-old male with past medical history of COPD, chronic smoker, aortic dissection status post repair, hypertension, hyperlipidemia, recent aneurysms repair with stent placement at [place], and BPH was admitted to the hospital on 09/20/2024 due to hemoptysis likely secondary to 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 In the ED patient came in with complaints of hemoptysis for 4 days prior to admission. Initially patient was hypertensive and afebrile. Initial labs were relevant for mild leukocytosis (12.6 and down trended to 10.8), and hypokalemia (3.1). Initial imaging included chest x-ray which showed bibasilar pneumonia and EKG which showed sinus rhythm. Chest/abdomen/pelvis CTA show aneurysmal dilatation thoracic aortic arch, patent thoracic aortic stent/celiac superior mesenteric/bilateral renal artery stents, 2.2 cm aneurysm celiac trunk, 16 mm solid lesion left kidney, aneurysm aortic bifurcation 5.3 cm, aneurysms right and left common iliac arteries and right internal iliac artery. Patient's electrolytes were repleted and his aspirin was held, he had apparently not been on aspirin for the last 2 days prior to admission. Patient's hemoglobin was stable at 14.3. Cutter Finisher was consulted given patient's hemoptysis in the setting of thoracic aortic arch aneurysm. Cutter Finisher recommended to transfer the patient to a higher level of care institution given that he will need either thoracic or vascular surgeon for evaluation of aortic aneurysm stent as possible cause of hemoptysis. As per pulmonology recommendations patient was also started on nebulized TXA 500 mg 3 times daily, given 1 unit of platelets, strict bedrest, lactulose, senna, and labetalol 10 mg IV every 4 for systolic blood pressure above 140. At the time of discharge patient was stable enough to be discharged to another institution with higher level care. Discharge plan: ?Transfer to another institution with higher level of care Problem list: #Hemoptysis #COPD #Chronic smoker #Thoracic aortic arch aneurysm s/p stent #Hypertensive urgency #Community-acquired pneumonia #Leukocytosis #Hypokalemia #16 mm left kidney mass, incidental finding Case disclosed with Attending Dr. Fleming and My senior Dr. Garcia PGY3. Freddy Song PGY1 Time Spent with Patient Time attestation: Total time spent providing and/or coordinating discharge services:>35 min Exam Vital Signs Temp Pulse Resp BP Pulse Ox O2 Del Method O2 Flow Rate 97.1 F 74 21 H 150/83 H 96 Room Air 2 09/20/24 16:00 09/20/24 16:00 09/20/24 16:00 09/20/24 16:00 09/20/24 16:09/20/24 16:09/20/24 04:42 Narrative Exam General: A/O x3, no acute distress, well-nourished, well-developed Eyes: PERRL, EOMI. Anicteric, vision grossly intact. Ears: No ear pain, no ear discharge, Hearing grossly intact. Nose: No nasal discharge. Mouth/Throat: Dry mucous membranes, no redness, no lesions, dry blood around lips. Neck: Neck supple, non-tender, no cervical lymphadenopathy. Lungs: Clear LUISA to auscultation and percussion, No accessory muscle use. Cardio: Normal S1/S2, regular rhythm, no murmurs, no JVD. Abdomen: Soft, non-tender, no palpable masses, peristalsis present, no guarding or rebound. Extremities: Symmetrical, no significant deformities, no peripheral edema , non-tender, peripheral pulses presents. Skin: No rashes, no lesions, warm to touch. Neuro: No focal neurological deficits. motor and sensory intact. Discharge Plan Prescriptions/Referrals Prescriptions/Med Rec: No Action amlodipine 10 mg tablet 10 mg PO QDAY aspirin 81 mg tablet,delayed release (DR/EC) 81 mg PO QDAY atorvastatin 10 mg tablet 40 mg PO QDAY metoprolol succinate 100 mg tablet extended release 24 hr 100 mg PO QDAY sennosides [Senokot] 8.6 mg Tablet 8.6 mg PO QDAY Referrals: No Primary/Family,Physician [Primary Care Provider] - Patient/Caregiver Discharge Instructions Print Language: Khmer Quality Discharge Quality Measures VTE prophylaxis MD Attestestation MD Attestation I have examined the patient, reviewed labs and imaging findings, discussed the case with the resident(s), and reviewed entered orders. I agree with the plan of care as outlined in this note. Dr. Fleming
--- NOTE | 2024-09-20 20:34 | ESCONSULT_ITS ---
HPI Pulmonology Consult Data of Consult Requesting Physician: Aydin Harris MD Primary Care Provider: Physician No Primary/Family Consult Narrative History of present illness: Patient is a 79-year-old male with past medical history significant for COPD secondary to tobacco use, continues to smoke at this point, his course has been also completed by presence of hypertension, hyperlipidemia and most notably significant thoracic aortic aneurysm requiring repair after dissection development at [place]. Notably has had 11 stents placed in the past. Patient notes that he has had increasing amounts of hemoptysis over the previous 4 days. Overnight patient had increasing hemoptysis that became difficult to control with gross bright red blood and large volumes and filled up a shoebox full of tissues. Patient was having increasing shortness of breath but called EMS and walked down from his home to the street to meet them there. Patient notes that by the time he reached the [facility] hemoptysis had stopped. Upon increasing activity again this afternoon in the emergency department he had 2- hour episode of continued coughing of gross red blood. Patient has not had any recurrence since 3:30 this afternoon. Association with increased activity. He has not had any fever, chills, or night sweats. He denied any focal chest pain at this point. Patient notes that he did have recent flulike illness in August for which his primary care provider gave him a Z-Jordan. Patient without any recent steroid use with underlying COPD which does not typically bother him. Patient continues to smoke remains at 2 packs a day. He able to briefly quit smoking after surgical intervention for his aneurysm repair. He continues to run a plumbing business. Patient seen in the emergency department where prompt CT was completed that did not show any significant intraparenchymal process though there is some mild groundglass and significant changes consistent with scarring and emphysematous changes. Patient reports that he had similar episode of hemoptysis in the past prior to diagnosis of his vascular disease requiring treatment but none since his surgical intervention. cc:: cc: Aydin Harris MD Review of Systems Review of Systems Narrative Review of Systems: Patient report no recent fever, chills, or night sweats. Noted that he has lost weight since his aneurysm in April. He denied any chest pain, dizziness, lightheadedness. No reports of syncope. Patient denied any hematemesis. No nasal bleed report. Past Medical History Past Medical History Comments PMH COMMENT: Past medical history/surgical history/social history were reviewed with the patient with significant findings included in HPI above. Notably his younger brother did just 6 weeks ago after large myocardial infarction. Meds Home Medications and Allergies Home Medications ?Medication ?Instructions ?Recorded ?Confirmed ?Type amlodipine 10 mg tablet 10 mg PO QDAY 09/13/19 09/20/24 History aspirin 81 mg tablet,delayed 81 mg PO QDAY 09/13/19 09/20/24 History release atorvastatin 10 mg tablet 40 mg PO QDAY 09/13/19 09/20/24 History metoprolol succinate 100 mg 100 mg PO QDAY 09/13/19 09/20/24 History tablet,extended release 24 hr sennosides 8.6 mg tablet (Senokot) 8.6 mg PO QDAY 09/20/24 09/20/24 History Allergies Allergy/AdvReac Type Severity Reaction Status Date / Time acetaminophen [From [place]] Allergy Mild Flushing Verified 08/15/22 00:15 hydrocodone [From [place]] Allergy Mild Flushing Verified 08/15/22 00:15 codeine Allergy Hives Verified 08/15/22 00:15 Exam Vital Signs Temp Pulse Resp BP Pulse Ox O2 Del Method O2 Flow Rate 97.1 F 74 21 H 150/83 H 96 Room Air 2 09/20/24 16:00 09/20/24 16:00 09/20/24 16:00 09/20/24 16:00 09/20/24 16:00 09/20/24 16:00 09/20/24 04:42 Narrative Exam GEN: NAD, AAOX3 HEENT: no blood in nose, no postnasal beeding noted, dark blood mixed in sputum; coughing of clots with clear phlegm; no nasal telangiactasia NECK: supple, no JVD/ HJR CHEST: symmetric excusion, nontraumatic; no telengiectasia CVS: S1/S2+ RRR no R/M/G PULM: Clear to ausculattaion, diminished mor melissa left than right but no active wheezing or rhonchi ABD: soft/ NT/ND, BS+ EXT: no clubbing or cyanosis NEURO: Nonfocal on gross exam PSYCH: appropriate mood/ affect; particpated in history and good historian Physical Exam Completion Physical Exam Complete?: Yes Results - [facility] 09/20/24 05:55 09/20/24 05:55 Labs: Short CBC 09/19/24 09/20/24 Range/Units 21:52 05:55 WBC 12.6 H 10.8 H (3.8-10.6) Thou/mm3 Hgb 14.4 14.3 (13.5-16.0) g/dL Hct 41.6 41.7 (41.0-53.0) % Plt Count 209 183 (140-440) Thou/mm3 BMP 09/19/24 09/20/24 21:52 05:55 Sodium 137 137 Potassium 3.1 L 3.2 L Chloride 101 103 Carbon Dioxide 30.4 29.3 BUN 18 16 Creatinine 1.2 1.1 Glucose 115 H 112 H Calcium 9.9 9.6 Cardiac Enzymes 09/19/24 Range/Units 21:52 Troponin I < 0.020 (0.0-0.045) ng/mL Liver Function 09/19/24 Range/Units 21:52 Total Bilirubin 0.5 (0.3-1.2) mg/dL AST 19 (0-34) U/L ALT 11 (10-49) U/L Alkaline Phosphatase 88 (46-116) U/L Albumin 4.3 (3.4-4.8) gm/dL ABG Interpretation ABG results: 09/19/24 22:01 ABG pH 7.45 ABG pCO2 46 ABG pO2 62 L ABG HCO3 32 H ABG O2 Saturation 94 ABG Base Excess 7 H Assessment & Plan Additional Plan Additional Plan: Massive hemoptysis Patient's imaging does not show large focal consolidation or pneumonia lesion that would be consistent with hemoptysis from a parenchymal process. Does not have significant mass lesion that would explain an active source of bleeding. Review of CT does not show any endobronchial lesion that is obvious. There are large bullae paraseptal along the descending aorta and the thorax though they are not fluid-filled. There is no evidence of any cavity I would suggest active infection or presence of aspergilloma/mycetoma that could lead to bleeding. Patient without history of vasculitis or diffuse alveolar hemorrhage with no imaging findings consistent with this. No evidence of AVM suggestion of telangiectasia on clinical exam. Given his significant vascular history, chief concern may be presence of systemic to pulmonary circulation fistula, suspected in the left lower lobe, or aorto parenchymal process though a bleeding lesion of this size lead to exsanguination. A vascular leak however could be intermittent and may be associated with increased intrathoracic pressure or increased flow rate. Patient should be maintained on bedrest, most likely suspect lesions within the left lung given the tortuous aorta and prior stenting there. Avoid increased intrathoracic pressure with prevention of straining as he has chronic constipation, maintain on Senokot or MiraLAX. Additionally if urinary retention is a problem due to prostatomegaly, Flomax or alternative should be utilized. Notably, we do not have interventional radiology with vascular capability here for bronchial artery embolization, but need for side I do not have a significant lesion to explain for. Alternatively no vascular surgery is available in case this is related to his extensive history of fusiform aortic aneurysms. I will request a VQ scan to be done while he is here to exclude presence of pulmonary AVM though this seems less likely as he is not hypoxic suggesting of [id number] shunt. Patient will be maintained off of his aspirin, no plans for transfusion of platelets at this time unless active bleeding recurs. Patient will benefit from TXA as this has been associated with reduction in duration of hemoptysis. Should the patient develop massive hemoptysis again, patient should be laid on his left side given his imaging findings and brought to the ICU for close monitoring. Albuterol should be used generously as blood is very bronchospastic. Patient does not need steroids and empiric antibiotics can be used but I do not see a significant parenchymal process otherwise. I have updated the patient and his daughter at bedside on plan of care and they are agreeable pending transfer back to his surgical team at [place] where he will have adequate resources for further investigation and appropriate intervention as needed. I remain available overnight in case of emergent airway management and any further details, from bronchoscopy would be helpful in that scenario to find actively bleeding lesion to help direct further therapy from surgical team. Provider Notation Provider Notation: Although this document has been carefully reviewed, there may still be some phonetic and other typographical errors. These errors are purely grammatical due to imperfections in the software program and should not be construed in any way to compromise the substance of the patient's medical care during this visit. Thank you for the opportunity and privilege in assisting you with this patient's care and management.
--- NOTE | 2024-09-20 20:49 | PC.NURSE ---
Images send to [place] and transfer nurse Ayo notified.
[2024-09-20] MEDS: LABETALOL INJ 5 MG/ML VIAL 20 ML IVP (21:17)
--- NOTE | 2024-09-20 21:29 | PC.NURSE ---
patient has been non compliant with activity restriction. he insists on walking to bathroom and does not lay on left side after multiple instructions to do so.
[2024-09-20] MEDS: TRANEXAMIC ACID INJ 1,000 MG/10 ML VIAL 500 MG INH (22:21)
[2024-09-21] VITALS (36 sets, daily range): BP systolic 133–177; BP diastolic 75–102; PULSE 57–77; RESP 14–28; TEMP 36.5–36.7; O2SAT 87–96; BMI 34.1
[2024-09-21] MEDS: LABETALOL INJ 5 MG/ML VIAL 20 ML IVP (00:48)
[2024-09-21 05:45] LABS: Basophils # (Auto) 0.1 Thou/mm3 (0.0-0.2); Basophils % (Auto) 1 % (0-2.5); Eosinophils # (Auto) 0.7 Thou/mm3 (0.0-0.5); Eosinophils % (Auto) 8 % (0-10); Hematocrit 37.9 % (41.0-53.0); Hemoglobin 12.3 g/dL (13.5-16.0); Immature Granulocytes % (Auto) 1 % (0-0); Immature Granulocytes Auto 0.05 Thou/mm3 (0.00-0.00); Lymphocytes # (Auto) 3.2 Thou/mm3 (1.0-4.8); Lymphocytes % (Auto) 33 % (10-50); Mean Corpuscular HGB Conc 32.5 g/dl (31.0-37.0); Mean Corpuscular Hemoglobin 28.7 pg (25.0-35.0); Mean Corpuscular Volume 89 fL (80-100); Monocytes # (Auto) 0.9 Thou/mm3 (0.0-0.8); Monocytes % (Auto) 9 % (0-12); Neutrophils # (Auto) 4.8 Thou/mm3 (1.8-7.7); Neutrophils % (Auto) 50 % (37-80); Nucleated Red Blood Cell % 0 /100 WBC (0); Platelet Count 178 Thou/mm3 (140-440); RDW Standard Deviation 46.1 fL (35.1-43.9); Red Blood Count 4.28 Miln/mm3 (4.50-5.90); White Blood Count 9.8 Thou/mm3 (3.8-10.6)
[2024-09-21] MEDS: TRANEXAMIC ACID INJ 1,000 MG/10 ML VIAL 500 MG INH (05:57)
[2024-09-21 06:05] LABS: Anion Gap 5 (7-16); BUN/Creatinine Ratio 11 Ratio (12-20); Blood Urea Nitrogen 13 mg/dL (9-23); Calcium 9.1 mg/dL (8.3-10.6); Carbon Dioxide 31.2 mMol/L (20.0-31.0); Chloride 104 mMol/L (98-107); Creatinine (Component) 1.2 mg/dL (0.6-1.3); Estimated Creatinine Clearance 61.7 mL/min (>60); Glucose 108 mg/dL (74-106); Osmolality,Calculated 280 (275-295); Potassium 3.2 mMol/L (3.4-5.1); Sodium 140 mMol/L (136-145); eGFR > 60 See Note
[2024-09-21 06:44] LABS: Cardiac Risk Estimate 3.9 RATIO (4.0-6.7); Cholesterol 117 mg/dL (132-200); Glucose Estimated Average 117 mg/dL (80-131); HDL Cholesterol 30 mg/dL (40-60); Hemoglobin A1C 5.7 % Hgb (4.8-6.0); LDL Cholesterol,Calculated 67 mg/dL (0-130); Triglycerides 98 mg/dL (30-150)
--- NOTE | 2024-09-21 08:46 | PC.NURSE ---
Addendum entered by Zita Orozco RN 09/21/24 12:31: SPOKE TO LINDA AND NOTIFIED THAT PATIENT HAS LEFT AMA FROM OUR FACILITY AND TRANSFER IS TO BE CANCELLED. Original Note: SPOKE TO LINDA FROM [facility], STATED THEY ARE WAITING TO CONNECT TO AN ADDITIONAL DOCTOR ON THEIR END TO REVIEW. NO FURTHER ITEMS NEEDED AT THIS TIME.
[2024-09-21] MEDS: POTASSIUM CHLORIDE 20 mEq TABCR 40 MEQ PO (09:55)
[2024-09-21] MEDS: amLODIPine BESYLATE 5 MG TABLET 10 MG PO (09:56)
[2024-09-21] MEDS: AZITHROMYCIN INJ 250 MG in SODIUM CHLORIDE 0.9% 250 ML 250 ML IV (09:59)
[2024-09-21] MEDS: LACTULOSE SYRUP 20 GM/30 ML UDC PO (09:59)
[2024-09-21] MEDS: TAMSULOSIN HCL 0.4 MG CAPSULE PO (09:59)
[2024-09-21] MEDS: cefTRIAXone/D5w 1gm IV premix 50 ML IV (09:59)
[2024-09-21] MEDS: METOPROLOL SUCCINATE XL 25 MG TABCR 100 MG PO (09:59)
--- NOTE | 2024-09-21 11:38 | PC.NURSE ---
Patient not being compliant about bed rest orders. Risks explained to patient but hes still persistent on getting out of bed
--- NOTE | 2024-09-21 11:39 | PC.NURSE ---
patient back from [facility]. Patient's family at bedside. Per patient and family they would like to leave against medical advice. MD Fleming called.
[2024-09-21 14:48] LABS: Cocci Serology, IgG Negative (Negative)
--- NOTE | 2024-09-21 15:28 | EVENTNT_ITS ---
Documentation for date of: 09/21/24 Event Note Event Note: This morning, during bedside rounds around 11:30 AM patient and his family reported that they wanted to leave AMA. They reported that they would be going to [facility] as soon as they leave from here. However, we reported that we have been working for transfer to [facility] but we cannot guarantee the timeframe when he is going to get transferred. The patient and her family members where rigid about their decisions. The patient was alert and oriented x 4, and understood that he was here for hemoptysis, and if he leaves AMA his life would be at risk. He was recommended to stay in the hospital, but he continued to say that he would go to [facility] instead of staying here. He was again reminded about his life-threatening severe illness, and if he left AMA he could possibly bleed to . He reported he understands that but he would like to leave as soon as possible. The patient signed AMA form, and left. The case was discussed with my attending physician MD Warren Arnold MD, PGY2 ---- I have examined the patient, reviewed labs and imaging findings, discussed the case with the resident(s), and reviewed entered orders. I agree with the plan of care as outlined in this note, with these additional summaries/recommendations: Patient seen at bedside. Patient remained stable overnight. Patient endorsed having another episode of hemoptysis this morning but was milder than previous events. I received a call from patient's nurse that patient would like to leave AMA. The patient has decided to leave AGAINST MEDICAL ADVICE because he wants to go to [place] where his vascular doctors are. He has normal mental status and adequate capacity to make medical decisions. The patient refuses to stay hospitalized and request discharge. The risks have been explained to the patient including progression of hemoptysis, worsening breathing, worsening illness, chronic pain, permanent disability and even . The benefits of staying in the hospital have also been explained including the availability and proximity of nurses, physicians, monitoring, diagnostic testing, treatment, and specialist evaluation. The patient was able to understand and state the risks and benefits of hospitalization. Patient and family had the opportunity to ask questions about the medical condition. The patient was treated to the extent that he would allow and knows that he may return for care at any time. Attempted to discuss follow-up although patient states he is going to [place] and will follow-up with his heart doctor as well. Patient encouraged to stay in the hospital although he has signed AMA papers and left. Dr. Fleming
--- NOTE | 2024-09-22 18:43 | ESCONSULT_ITS ---
RE: VIJAY NEWTON : 1945 DATE OF CONSULTATION: 09/21/2024 CONSULTING PHYSICIANS: Hospitalist, Dr. Reaves and Dr. Cisneros REASON FOR CONSULTATION: Evaluation of the patient with descending thoracic aneurysm, recent stent HISTORY OF PRESENT ILLNESS: The patient is a 79-year-old male, very well known to me, longstanding history of hypertension, chronic heavy smoking who had a syncopal episode in 2016 _ type A dissection of the aorta, ascending aorta and descending thoracic aorta, underwent repair of the ascending aorta, hemiarch repair in 2016 at [facility] subsequently, was doing well until recently. In 04/2024, the patient has had multiple problems including descending thoracic aortic aneurysm involving the major vessels. The patient underwent thoracic endovascular repair. At the same time, the patient had multiple stents placed in both renal arteries, celiac arteries, mesenteric arteries at the same time and stent was placed in the descending thoracic aorta, endovascular endothelial stent graft. The patient apparently is doing well until recently. The patient was admitted to the hospital with severe episode of hemoptysis. The patient has had significant hemoptysis, multiple episodes, nearly 200 mL of blood loss according to the patient, but since yesterday afternoon, he came, he is not having any hemoptysis. The patient had evaluation by pulmonary and also complete workup including CT scan was performed. The CT scan of the chest showed no evidence of endobronchial lesions. No evidence of active bleeders. The CT of the thoracic aorta showed evidence of descending thoracic aorta dilated. The stent was patent and there was no active bleeding from the aorta. Stents in the mesenteric, celiac and renal arteries are patent. The patient's family is concerned that he has hemoptysis. There may be some connection with recent stents placed and wanted to take him to [place], but I do not see a need for the patient to be transferred at this time, but the patient's family insisted they want to take him to [place] by personal transportation. The patient clinically when I examined him, he appears to be doing well. I spoke to him. He does not complain of any chest pain or shortness of breath. No further hemoptysis since last night, though when he walks apparently he gets problems. Blood pressure is also controlled well. Generally controlled well at 150/80, not severely elevated. MEDICATIONS: Home medications include metoprolol 100 mg once a day, atorvastatin 10 mg daily, amlodipine 10 mg daily, aspirin 81 daily, generally compliant with medication. ALLERGIES: HE IS ALLERGIC TO CODEINE AND NORCO. PAST MEDICAL HISTORY: Type A dissection of the aorta involving the ascending aorta and hemiarch repair in 2015. In 04/2024, he underwent multiple stents placed in the mesenteric, celiac and renal arteries, also ELG stent graft in descending thoracic aorta for dilated descending aorta. This was done at [facility]. His initial surgery was also at [place]. SOCIAL HISTORY: The patient continues to smoke. He does not smoke or drink alcoholic beverages. FAMILY HISTORY: Noncontributory REVIEW OF SYSTEMS: CARDIOVASCULAR: No angina. No shortness of breath. No chest pain. PULMONARY: History of hemoptysis, subsided. GENITOURINARY: No history of frequency or dysuria. History of urological problems, phimosis and prostatic hypertrophy. FIELD TECH: No neurologic symptoms such as syncope or paresthesia. PHYSICAL EXAMINATION: GENERAL: _ pleasant male, alert, awake and in no acute distress. VITAL SIGNS: Blood pressure is 150/90, pulse rate is 77, respirations 16, temperature is normal. NECK: Supple. No JVD. CHEST: Symmetrical. LUNGS: Clear. No rales or rhonchi. HEART: S1 and S2 regular. No gallops. ABDOMEN: Thin and soft. EXTREMITIES: Mild edema. /RECTAL: Not performed. FIELD TECH: Normal. DIAGNOSTIC DATA: Electrocardiogram showed sinus rhythm, nonspecific changes. Rest of the diagnostic data unremarkable. The CT scan showed evidence of dilated descending aorta. Endoluminal stents were patent. All the stents were patent as well. LABORATORY DATA: Lab data shows hemoglobin did drop from 14 to 12.3, but some of it is dilutional. White count is normal. Chemistry panel is normal. IMPRESSION/ASSESSMENT: 1. Recurrent episode of hemoptysis probably from bronchitis and endobronchial vascular lesions, but no evidence of any abnormal finding on the CT scan such as thoracic mass. 2. History of thoracic dissection of the aorta in 2015, underwent extensive surgery of hemiarch repair and ascending aorta replacement, but subsequently had stents placed in descending thoracic aorta as well as multiple visceral stents with celiac, mesenteric and renal stents placed at [place]. 3. Chronic obstructive pulmonary disease. 4. Chronic smoking. 5. Hypertension. RECOMMENDATIONS: The patient is reassured that there is almost zero chance that aortic leak causing hemoptysis unlikely to happen. Most likely cause would be local pathology, could be bronchial erosion or some other mechanism, but it subsided. Hence, I do not see any major problems, but the patient's family wants to take him to [place], which is okay with me since the patient had extensive testing and also workup down there with stents placed. DT: 14:47:31 TT: 18:37:00 Ref: [id number] - TID: [id number] MTDD
== END 2024-09-21 12:20 | disposition left against medical advice (07) | DRG 194 ==
LOC: SERX 23:22 → SERHOLD 09-20 05:28 → S2NX 09-20 14:39 → S2SX 09-21 10:46 → S2NX 09-23 06:24
PROVIDERS: Admitting Provider Internal Medicine; Emergency Provider Emergency Medicine; Visit Provider Internal Medicine
DX: J18.9 Pneumonia, unspecified organism (principal); R04.2 Hemoptysis; N28.0 Ischemia and infarction of kidney; I10 Essential (primary) hypertension; E87.6 Hypokalemia; G89.29 Other chronic pain; I16.0 Hypertensive urgency; N28.89 Other specified disorders of kidney and ureter; I72.3 Aneurysm of iliac artery; I71.23 Aneurysm of the descending thoracic aorta, without rupture; I71.22 Aneurysm of the aortic arch, without rupture; J44.0 Chronic obstructive pulmonary disease with (acute) lower respiratory infection; E78.5 Hyperlipidemia, unspecified; F17.210 Nicotine dependence, cigarettes, uncomplicated; Z53.29 Procedure and treatment not carried out because of patient's decision for other reasons; Z86.79 Personal history of other diseases of the circulatory system; Z95.818 Presence of other cardiac implants and grafts; Z79.82 Long term (current) use of aspirin; Z79.899 Other long term (current) drug therapy; Z88.5 Allergy status to narcotic agent
CPT/HCPCS: 36415; 36600; 71045; 71275; 74174; 78582; 80048; 80053; 80061; 82803; 83036; 83735; 83880; 84145; 84484; 85025; 85610; 85730; 86331; 86480; 86635; 86850; 86900; 86901; 86965; 87811; 93005; 96365; 96366; 96367; 99285; A4649; A9539; A9540; J0360; J0456; J0696; J3475; J3490; J7030; J7050; P9035; Q9967; A9270; J1920